=== PATIENT | male | born 1950 | race Caucasian/White ===

== ENCOUNTER 2017-09-17 06:37 | Emergency (ER) | payer MEDICARE, OTHER ==
[~2017-09-17] VITALS: Ht 182.9 cm; Wt 79.4 kg
[2017-09-17] MEDS ORDERED: TRAMADOL HCL 50 MG TAB PO ONE (07:30)
--- NOTE | 2017-09-17 07:52 | Diagnostic Imaging Report ---
KNEE LEFT THREE VIEWS HISTORY: Pain. COMPARISON: None available. FINDINGS: Bones: No acute displaced fracture. Mild enthesopathic changes of the extensor mechanism. Osseous alignment is within normal limits. Joints: The joint spaces are well-maintained. Soft tissues: Small joint effusion. Mild prepatellar soft tissue swelling. IMPRESSION: No acute bony abnormality. Signed by: DR. Cruz Chavez MD on 09/17/2017 7:48 AM
[2017-09-17 08:12] VITALS: BP 112/83
[2017-09-21] MEDS ORDERED: CLEOCIN HCL150 MG PO (06:40)
[2017-09-21] MEDS ORDERED: FAMOTIDINE20 MG PO (06:40)
== END 2017-09-17 08:20 | disposition home or self-care (01) ==
LOC: ER 06:37
DX: L03.116 Cellulitis of left lower limb (principal); I48.91 Unspecified atrial fibrillation; G20 Parkinson's disease
CPT/HCPCS: 99283

== ENCOUNTER 2017-09-19 08:50 | Inpatient (IN) | payer MEDICARE, OTHER ==
[~2017-09-19] VITALS: Ht 182.9 cm; Wt 80.7 kg
--- OUTSIDE RECORDS SUMMARY | 2017-09-19 08:53 | XMS REPORT | Continuity of Care Document ---
Author Author [facility] Organization [facility] Address [address] [place] [address] Phone Unavailable Care Team Providers Care Leasing Machine Tender Name Role Phone JANN WHYTE M.D. PCP Insurance Providers Guarantor Zi Pacheco Address [address] [place] [address] Email Payer Medicare A & B Policy Number [id number] Subscriber's Name Zi Pacheco Relationship 18 Self / Same As Patient Payer Miscellaneous Indemnity Policy Number [id number] Subscriber's Name Zi Pacheco Relationship 18 Self / Same As Patient Advance Directives Directive Response Recorded Date/Time Does the patient have an advance directive? No 09/17/17 7:25am If yes, is advance directive on file with [facility]? No 09/17/17 7:25am If not on file with [facility] will patient provide a copy? No 09/17/17 7:25am Do you have a Directive to Physician? No 09/17/17 7:25am Do you have a Medical Power of Seismograph Helper? No 09/17/17 7:25am Do you have an out of hospital Do Not Resuscitate Order? No 09/17/17 7:25am Do you have any special needs we should be aware of? No 09/17/17 7:25am Do you have a support person here with you today? Yes 09/17/17 7:25am Did patient receive Notice of Privacy Practices? Yes 09/17/17 7:25am Did patient receive patient rights and responsibilities? Yes 09/17/17 7:25am Problems No problem information available. Medications No medication information available. Social History Smoking Status Start Date Stop Date Never Smoker Hospital Discharge Instructions No hospital discharge instruction information available. Plan of Care Discharge Date 09/17/17 8:20am Disposition HOME, SELF-CARE Condition at Discharge Stable Instructions/Education Provided Cellulitis Forms Provided Work/School Excuse Prescriptions See Medication Section Additional Instructions/Education YOU CAN BEAR WEIGHT TOLERATED TAKE ALL MEDICATIONS PRESCRIBED FOLLOW UP WITH FAMILY DOCTOR Functional Status No functional status information available. Allergies, Adverse Reactions, Alerts No known allergies. Immunizations No immunization information available. Vital Signs Acute Vital Signs Vital Response Date/Time Pulse Pulse Rate (adult) 90 bpm (60 - 90) 09/17/2017 8:12am Respiratory Rate 20 bpm (12 - 24) 09/17/2017 8:12am Blood Pressure 112/83 mm Hg 09/17/2017 8:12am Height 6 ft 0 in 09/17/2017 6:44am Weight 175 lb 09/17/2017 6:44am Body Mass Index 23.7 kg/m^2 09/17/2017 6:44am Results No relevant diagnostic test, laboratory data and/or discharge summary information available. Procedures No procedure information available. Encounters Encounter Location Arrival/Admit Date Discharge/Depart Date Attending Provider Departed Emergency Room [facility] 09/17/17 6:37am 8:20am LEIGHANN AUSTIN MD
--- OUTSIDE RECORDS SUMMARY | 2017-09-19 08:53 | XMS REPORT ---
Author Author [facility] Address Unknown Phone Unavailable Care Team Providers Care International Student Counselor Name Role Phone LEIGHANN AUSTIN Unavailable Unavailable Problems This patient has no known problems. Allergies, Adverse Reactions, Alerts This patient has no known allergies or adverse reactions. Medications This patient has no known medications. Results Test Description Test Time Test Comments Text Results Atomic Results Result Comments KNEE LEFT THREE VIEWS [place] [address] Patient Name: ZI RUIZ MR #: [id number] : 1950 Age/Sex: 67/M Req # : [id number] Adm Physician: Ordered by: LEIGHANN AUSTIN MD Report # : [id number] Location: ER Room/Bed: Procedure: [id number] DX/KNEE LEFT THREE VIEWS Exam Date: 09/17/17 Exam Time: 0700 REPORT STATUS: Signed KNEE LEFT THREE VIEWS HISTORY: Pain. COMPARISON: None available. FINDINGS: Bones: No acute displaced fracture. Mild enthesopathic changes of the extensor mechanism. Osseous alignment is within normal limits. Joints: The joint spaces are well-maintained. Soft tissues: Small joint effusion. Mild prepatellar soft tissue swelling. IMPRESSION: No acute bony abnormality. Signed by: DR. Cruz Ayala MD on 09/17/2017 7:48 AM Dictated By: CRUZ AYALA MD 7 COPY TO: LEIGHANN AUSTIN MD
--- NOTE | 2017-09-19 10:09 | Diagnostic Imaging Report ---
PROCEDURE:KNEE LEFT THREE VIEWS TECHNIQUE:AP, lateral and oblique views left knee INDICATION:Fall on knee; infection COMPARISON:Patients [facility], DX, KNEE LEFT THREE VIEWS, 09/17/2017, 6:53. FINDINGS: The left knee is intact and in anatomic alignment. Mild spurring of the tibial spines and quadriceps insertion at the patella. Superficial soft tissue swelling without foreign body or subcutaneous emphysema. CONCLUSION: Soft tissue swelling without evidence of fracture or traumatic malalignment. Dictated by: Jose Braden M.D. on 09/19/2017 at 10:12 Electronically approved by: Jose Braden M.D. on 09/19/2017 at 10:12
[2017-09-19 10:10] LABS: BASOPHILS % 0.4 % (0.0-1.0); EOSINOPHILS # (AUTO) 0.1 (0.0-0.4); EOSINOPHILS % 1.1 % (0.0-6.0); HEMATOCRIT 46.5 % (38.2-49.6); HEMOGLOBIN 16.1 g/dL (14.0-18.0); LYMPHOCYTES # (AUTO) 1.5 (1.0-3.2); LYMPHOCYTES % 17.4 % (18.0-39.1); MEAN CORPUSCULAR HEMOGLOBIN 32.5 pg (28-32); MEAN CORPUSCULAR HGB CONC 34.6 g/dL (31-35); MEAN CORPUSCULAR VOLUME 93.9 fL (81-99); MONOCYTES # (AUTO) 0.8 (0.2-0.8); MONOCYTES % 9.8 % (4.4-11.3); NEUTROPHILS # (AUTO) 5.9 (2.1-6.9); NEUTROPHILS % 70.2 % (38.7-80.0); PLATELET COUNT 168 x10e3/uL (140-360); RED BLOOD COUNT 4.95 x10e6/uL (4.3-5.7)
[2017-09-19 10:20] LABS: INR 2.3; PROTHROMBIN TIME 23.8 seconds (11.9-14.5)
[2017-09-19 10:21] LABS: PARTIAL THROMBOPLASTIN TIME 34.3 seconds (23.8-35.5)
[2017-09-19 10:26] LABS: ALBUMIN/GLOBULIN RATIO 1.5 (0.8-2.0); ALKALINE PHOSPHATASE 49 IU/L (40-150); ANION GAP 13.2 mmol/L (8-16); BLOOD UREA NITROGEN 26 mg/dL (7-26); BUN/CREATININE RATIO 23 (6-25); CALCIUM 9.5 mg/dL (8.4-10.2); CARBON DIOXIDE 27 mmol/L (22-29); CHLORIDE 100 mmol/L (98-107); CREATININE, SERUM 1.14 mg/dL (0.72-1.25); EST GLOMERULAR FILTRATION RATE > 60 ML/MIN (60-); GLUCOSE 136 mg/dL (74-118); POTASSIUM 4.2 mmol/L (3.5-5.1); SODIUM 136 mmol/L (136-145)
[2017-09-19 10:27] LABS: ALANINE AMINOTRANSFERASE < 6 IU/L (0-55)
[2017-09-19] MEDS ORDERED: MORPHINE SULFATE 2 MG/ML SYR IV PRN (10:45)
[2017-09-19] MEDS ORDERED: ONDANSETRON HCL INJ 2 MG/ML VIAL IV PRN (10:45)
[2017-09-19] MEDS: CLINDAMYCIN 300MG 50 ML IV SCH ×3 (10:45→22:00)
[2017-09-19] MEDS ORDERED: ONDANSETRON HCL 4 MG ORAL DISINTEGRATING TAB SL PRN (11:00)
[2017-09-19] MEDS ORDERED: SODIUM CHLORIDE 0.9% 250ML 250 ML ONE (12:51)
[2017-09-19 13:04] VITALS: BP 121/84
[2017-09-19] MEDS: VANCOMYCIN 1GM/NS 250 ML 250 ML IV SCH (14:47)
[2017-09-19 15:00] VITALS: BP 121/84
[2017-09-19] MEDS ORDERED: SINEMET CR 50-1 EACH PO (15:52)
[2017-09-19] MEDS ORDERED: COUMADIN2.5 MG PO (15:52)
[2017-09-19] MEDS ORDERED: DIGOXIN125 MCG PO (15:52)
[2017-09-19] MEDS ORDERED: WARFARIN SODIUM5 MG PO (15:52)
[2017-09-19] MEDS ORDERED: SINEMET 25-2501 EACH PO (15:52)
[2017-09-19] MEDS ORDERED: ULTRAM50 MG PO (15:55)
[2017-09-19] MEDS ORDERED: DOXYCYCLINE HY100 MG PO (15:55)
[2017-09-19] MEDS ORDERED: SOTALOL80 MG PO (15:55)
[2017-09-19] MEDS ORDERED: LISINOPRIL10 MG PO (15:55)
[2017-09-19] MEDS ORDERED: TAMSULOSIN HCL0.4 MG PO (15:55)
[2017-09-19 16:15] VITALS: BP 121/84
[2017-09-19 16:34] VITALS: BP 108/82
[2017-09-19] MEDS ORDERED: ENOXAPARIN 30 MG/0.3 ML SYR SC SCH (17:00)
--- NOTE | 2017-09-19 20:01 | History and Physical ---
PRIMARY CARE PHYSICIAN: Dr. Gotti CHIEF COMPLAINT: Left knee redness and pain. HISTORY OF PRESENT ILLNESS: This is a 67-year-old man with a history of elbow cellulitis and prediabetes, now developing left knee redness and pain. The patient admits to having fallen on the knee. He fell on the knee about 2 weeks ago, and symptoms started about 2-3 days ago. He came to the emergency room and started on doxycycline and sent home. Due to worsening redness and pain, he came to the hospital. The patient denies any chest pain. Denies any shortness of breath. PAST MEDICAL HISTORY: Prediabetes, atrial fibrillation, hypertension, Parkinson disease, elbow cellulitis. PAST SURGICAL HISTORY: Work related pelvic injury, bladder stone. ALLERGIES: PER ELECTRONIC MEDICAL RECORD. FAMILY HISTORY/SOCIAL HISTORY: Patient is . Has 2 sons. No alcohol, illicits or cigarettes. MEDICATIONS: Per electronic medical record. REVIEW OF SYSTEMS: Denies any dizziness or chest pain. PHYSICAL EXAMINATION VITAL SIGNS: Reviewed. GENERAL: A tired-appearing man resting in bed. HEENT: Anicteric. Pupils respond to light. No oral lesions. CARDIOVASCULAR: Normal S1 and S2. LUNGS: Moderate breath sounds. ABDOMEN: Soft, nontender and nondistended. EXTREMITIES: No edema or calf tenderness on the right leg. On the left leg, he has erythema, tenderness, warmth, and edema of the left knee region. He has edema of trace to 1+ on the left foreleg. SKIN: Dry. PSYCHIATRIC: Normal affect. NEUROLOGICAL: Alert and oriented times 3. Moving all extremities. LABS: Reviewed. MEDICATIONS: Reviewed. ASSESSMENT AND PLAN: A 67-year-old man with: 1. Left knee infection/cellulitis: Will treat with vancomycin, intravenous clindamycin. Obtain methicillin-resistant Staphylococcus aureus screening. X-ray showed no evidence of fracture or malalignment. 2. Failed outpatient antibiotic therapy for left knee cellulitis. 3. Left knee pain: P.r.n. pain medication. 4. Prediabetes: Obtain hemoglobin A1c and lipid panel. 5. Fall 2 weeks ago, Parkinson disease related: Physical therapy consultation. 6. Hypotension: Blood pressure as low as 96/75. Rehydrate the patient and reassess. Could be related to autonomic dysfunction in the setting of Parkinson disease. Will hold lisinopril. 7. Hyperbilirubinemia: Bilirubin 1.5. Follow up outpatient. 8. Atrial fibrillation: Patient on Coumadin at home. Currently, INR is therapeutic at 2.3. Will continue his home Coumadin medication. No need for Lovenox here. Will use Pepcid prophylactically. Will obtain digoxin level. Will continue sotalol. 9. Parkinson disease: Will continue Sinemet and physical therapy. 10. BPH: Will continue Flomax. 11. Knee pain: Will continue tramadol. 12. Prophylaxis: Use Pepcid while on anticoagulation. 13. Disposition: INR tomorrow morning. Follow up venous Doppler. Job#: [id number] PR
[2017-09-19 20:37] VITALS: BP 94/71
[2017-09-19] MEDS: CARBIDOPA/LEVODOPA 25/100 CR TAB PO SCH (21:00)
[2017-09-19] MEDS ORDERED: CARBIDOPA PO SCH (21:00)
[2017-09-19] MEDS ORDERED: CARBIDOPA/LEVODOPA 25/250 TAB PO SCH (21:00)
[2017-09-19] MEDS ORDERED: LEVODOPA PO SCH (21:00)
[2017-09-20] VITALS (12 sets, daily range): BP systolic 93–150; BP diastolic 61–91
[2017-09-20] MEDS: TRAMADOL HCL 50 MG TAB PO PRN ×2 (02:05→22:02)
[2017-09-20] MEDS: CLINDAMYCIN 300MG 50 ML IV SCH ×3 (06:00→22:11)
[2017-09-20] MEDS: CARBIDOPA/LEVODOPA 25/250 TAB PO SCH ×5 (06:00→18:05)
[2017-09-20 07:01] LABS: BASOPHILS % 0.3 % (0.0-1.0); EOSINOPHILS # (AUTO) 0.1 (0.0-0.4); EOSINOPHILS % 0.9 % (0.0-6.0); HEMATOCRIT 42.8 % (38.2-49.6); HEMOGLOBIN 15.1 g/dL (14.0-18.0); LYMPHOCYTES % 15.6 % (18.0-39.1); MEAN CORPUSCULAR HEMOGLOBIN 33.5 pg (28-32); MEAN CORPUSCULAR HGB CONC 35.3 g/dL (31-35); MEAN CORPUSCULAR VOLUME 94.9 fL (81-99); MONOCYTES # (AUTO) 0.6 (0.2-0.8); MONOCYTES % 9.5 % (4.4-11.3); NEUTROPHILS # (AUTO) 4.7 (2.1-6.9); NEUTROPHILS % 73.2 % (38.7-80.0); PLATELET COUNT 159 x10e3/uL (140-360); RED BLOOD COUNT 4.51 x10e6/uL (4.3-5.7)
[2017-09-20 07:18] LABS: INR 2.43; PROTHROMBIN TIME 24.8 seconds (11.9-14.5)
[2017-09-20] MEDS: VANCOMYCIN 1GM/NS 250 ML 250 ML IV SCH (09:02)
[2017-09-20] MEDS: SOTALOL HCL 80 MG TAB PO SCH ×2 (09:02→18:05)
[2017-09-20] MEDS: FAMOTIDINE 20 MG TAB PO SCH ×2 (09:02→18:05)
--- NOTE | 2017-09-20 10:51 | Cardiology Report ---
DATE OF STUDY: DOPPLER SCAN OF LEFT LEG VEINS ATTENDING PHYSICIAN: The left leg veins were interrogated using the duplex scanning method. The veins were compressible. There were no definite deep venous thrombosis. CONCLUSION 1. No definite deep venous thrombosis identified in the left leg veins. 2. The right leg was not studied. Job#: [id number] CO cc: ?
[2017-09-20] MEDS ORDERED: WARFARIN SOD 2.5 MG TAB PO SCH (17:00)
[2017-09-20] MEDS ORDERED: TAMSULOSIN HCL 0.4 MG CAP PO SCH (17:00)
[2017-09-20] MEDS ORDERED: DIGOXIN 0.125 MG TAB PO SCH (17:00)
[2017-09-20] MEDS: CARBIDOPA/LEVODOPA 25/100 CR TAB PO SCH (21:16)
[2017-09-21] VITALS: BP 118/79
[2017-09-21 04:00] VITALS: BP 124/89
[2017-09-21 04:43] VITALS: BP 118/79
[2017-09-21] MEDS: CARBIDOPA/LEVODOPA 25/250 TAB PO SCH ×2 (06:00→09:40)
[2017-09-21] MEDS: CLINDAMYCIN 300MG 50 ML IV SCH (06:00)
[2017-09-21] MEDS ORDERED: FAMOTIDINE20 MG PO (06:40)
[2017-09-21] MEDS ORDERED: CLEOCIN HCL150 MG PO (06:40)
[2017-09-21 08:00] VITALS: BP 119/89
--- NOTE | 2017-09-21 08:18 | Progress Note ---
DATE: September 20, 2017 TIME: 7:20 a.m. OVERNIGHT: The patient is a little better. REVIEW OF SYSTEMS: Denies any dizziness. PHYSICAL EXAMINATION VITAL SIGNS: Reviewed. GENERAL: A tired-appearing man resting in bed. HEENT: Anicteric. CARDIOVASCULAR: Normal S1 and S2. LUNGS: Moderate breath sounds. ABDOMEN: Soft and nontender. EXTREMITIES: He has a left knee with some erythema, warmth and tenderness in the left knee. SKIN: Dry. PSYCHIATRIC: Normal affect. LABS: Reviewed. MEDICATIONS: Reviewed. ASSESSMENT AND PLAN: A 67-year-old man with: 1. Left knee infection/cellulitis. 2. Failed outpatient antibiotic therapy for left knee cellulitis. 3. Left knee pain. 4. Prediabetes. 5. Fall secondary to Parkinson disease. 6. Agitation/acute metabolic encephalopathy partly due to hospitalization. 7. Hyperbilirubinemia: Bilirubin 1.5. 8. Hypotension. 9. Atrial fibrillation. 10. Parkinson disease. 11. BPH. 12. Urinary retention with Frances placement. PLAN 1. Continue IV antibiotics. 2. Continue physical therapy. 3. Frances placement. 4. Will need to follow with urology outpatient. 5. Monitor closely. 6. Discharge planning. Job#: [id number] MARY
--- NOTE | 2017-09-21 08:27 | Discharge Summary ---
PRINCIPAL DIAGNOSES 1. Left knee infection/cellulitis 2. Failed outpatient antibiotic therapy for left knee cellulitis. 3. Left knee pain. 4. Prediabetes. Now glycosylated hemoglobin only 5.5, and low-density lipoprotein is 41. 5. Parkinson disease with a fall during hospitalization. 6. BPH. 7. Physical deconditioning. 8. Atrial fibrillation. 9. Hyperbilirubinemia. 10. Urinary retention, status post Frances placement. SECONDARY DIAGNOSIS: Parkinson disease. CHIEF COMPLAINT: Left knee infection. HISTORY OF PRESENT ILLNESS: This is a 67-year-old man with left knee infection. Please refer to the H and P for further details. HOSPITAL COURSE: The patient was found to have left knee infection/cellulitis. He failed outpatient therapy with doxycycline. He was treated with IV vancomycin and IV clindamycin here. All cultures were negative. The patient had left knee pain treated with medication regimen. Prediabetes in the past. Hemoglobin A1c here is 5.5. He does not have diabetes at this time. He had a fall during the hospitalization when he slid off the chair, but he did not incur any trauma to his head. He had hypotension, which improved with IV antibiotics and fluids. Hyperbilirubinemia. Bilirubin was 1.5. This will be followed as an outpatient. Atrial fibrillation. He is on Coumadin. INR is therapeutic. Physical deconditioning. He had physical therapy and needs physical therapy at home. He had some agitation and confusion. 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 I have discussed the case with the patient's son and at bedside. The patient also had BPH and signs of obstruction. Ultrasound of the bladder showed 1 L. Frances was placed. We will remove it today and await a new voiding trial and obtain a repeat ultrasound. He may need Frances for home. He is to follow up with a urologist as an outpatient. The patient is currently appropriate for discharge with followup. DISCHARGE MEDICATIONS: Per electronic medical record and include Ceftin 500 mg q.12 and clindamycin 300 p.o. q.8, both antibiotics for 10 days. FOLLOWUP: With primary care doctor in 1 week and urologist in 1 week. SIDRA KNOTT MD Job#: [id number] MH
[2017-09-21] MEDS: FAMOTIDINE 20 MG TAB PO SCH (08:30)
[2017-09-21] MEDS: SOTALOL HCL 80 MG TAB PO SCH (08:30)
[2017-09-21 08:35] VITALS: BP 119/89
[2017-09-21] MEDS: VANCOMYCIN 1GM/NS 250 ML 250 ML IV SCH (09:40)
[2017-09-21] MEDS ORDERED: CEFUROXIME500 MG PO (10:55)
[2017-09-21 12:00] VITALS: BP 120/88
== END 2017-09-21 18:53 | disposition home or self-care (01) | DRG 602 ==
LOC: ER 08:50 → ERHOLD 10:48 → MED/SURG2 12:00
PROVIDERS: ADMIT Internal Medicine; ATTEND Internal Medicine
DX: L03.116 Cellulitis of left lower limb (principal); G93.41 Metabolic encephalopathy; R17 Unspecified jaundice; F03.91 Unspecified dementia, unspecified severity, with behavioral disturbance; F05 Delirium due to known physiological condition; I95.9 Hypotension, unspecified; I48.2 Chronic atrial fibrillation; Z79.01 Long term (current) use of anticoagulants; G20 Parkinson's disease; R33.9 Retention of urine, unspecified; R73.03 Prediabetes; N40.1 Benign prostatic hyperplasia with lower urinary tract symptoms; R33.8 Other retention of urine
CPT/HCPCS: 36415; 80053; 80061; 80162; 82948; 83036; 85025; 85610; 85730; 87040; 93971; 99284; J1650; J3370; J7050